=== PATIENT | female | born 1980 | race Caucasian/White ===

== ENCOUNTER → 2016-04-12 | Outpatient (CLI) | payer OTHER ==
[~2016-04-12] MED LIST: IBUP-232 PO; OXYC1TAB63 PO
[2016-04-12 10:04] LABS: HEMATOCRIT 33.2 % (35.0-46.0); REVIEW FLAG FINAL
== END ==
LOC: CLAB 08:24
PROVIDERS: ATTEND Obstetrics & Gynecology
DX: O09.93 Supervision of high risk pregnancy, unspecified, third trimester (principal)
CPT/HCPCS: 36415; 82951; 85014; 85018; 86703

== ENCOUNTER 2016-05-31 23:13 | Emergency (ER) | payer OTHER ==
[2016-05-31] MEDS ORDERED: LACTATED RINGER'S 1000 ML INJ 1,000 ML IV SCH (23:42)
[2016-05-31] MEDS ORDERED: TERBUTALINE INJ 1 MG/ML AMP SQ PRN (23:45)
[2016-05-31] MEDS ORDERED: ONDANSETRON HCL 4 MG/2 ML VIAL IV ONE (23:45)
--- NOTE | 2016-05-31 23:50 | PD ---
HPI Chief Complaint Contraction pain Date Seen: May 31, 2016 Travel History International Travel<30 Days: No Contact w/Intl Traveler<30Days: No Known Affected Area: No History of Present Illness HPI Patient 35-year-old white female previous 2 at 35-36 weeks presents complaining of contractions. Denies bleeding or rupture the membranes , heart rate tracing is reactive and she is bryn every 2-[address] Pratt for care Para: 2 : 3 History Obstetric History Obstetric History 2 C-sections Past Surgical History Narrative Surgical C-sections Social History Alcohol Use: No Tobacco Use: No Substance Abuse: No Allergies-Medications (Allergen,Severity, Reaction): Coded Allergies: Amoxicillin (Verified Allergy, Severe, Hives, 10/23/15) Home Meds No Active Prescriptions or Reported Meds Review of Systems General / Constitutional: No: Fever, Weight Gain, Chills, Other Eyes: No: Diploplia, Blurred Vision, Visual changes, Pain, Photophobia HENT: No: Headaches, Vertigo, Lightheadedness Cardiovascular: No: Irregular Rhythm, Chest Pain or Discomfort, Palpitations, Tachycardia, Syncope, Varicosities, Edema, Cyanosis Respiratory: No: Cough, Short of Breath, Other Gastrointestinal: Abdominal Pain, No: Nausea, Vomiting, Diarrhea Genitourinary: No: Decreased Urinary Output, Oliguria Musculoskeletal: No: Limited ROM, Weakness, Cramping, Edema, Pain Skin: No Rash, No Itching, No Dryness, No Lumps, No Change in Pigmentation, No Change in Nails, No Alopecia, No Lesions Neurologic: No: Weakness, Dizziness, Syncope, Focal Abnormalities, Coordination Problem, Headache, Slurred Speech, Seizures Psychiatric: No: Depression, Suicidal Ideations, Homicidal Ideation Endocrine: No: Heat Intolerance, Cold Intolerance, Polydipsia, Polyuria, Other Physical Exam Narrative GENERAL: Well-nourished, well-developed patient. SKIN: Warm and dry. HEAD: Normocephalic and atraumatic. EYES: No scleral icterus. No injection or drainage. ENT: No nasal drainage noted. Mucous membranes pink. Airway patent. NECK: Supple, trachea midline. No JVD. CARDIOVASCULAR: Regular rate and rhythm without murmurs, gallops, or rubs. RESPIRATORY: Breath sounds equal bilaterally. No accessory muscle use. BREASTS: Bilateral exam showed no masses , no retractions, no nipple discharge. ABDOMEN/GI: Abdomen soft, non-tender, bowel sounds present, no rebound, no guarding Gravid to [35-] weeks size Fundal Height: [35-] GENITOURINARY: External Genitalia: intact and normal in appearance BUS glands: [-] Cervix: [-] Dilatation: [Closed-] Effacement: [-] Thick Station: [-3] Presentation: [-vtx] Membranes: [intact ] Uterine Contractions: [Every 2-3 minutes-] FHT's: Category: [1-] Baseline: [133-] Reactive: [yes-] Variability: [mod-] Decels: [none-] EXTREMITIES: No cyanosis or edema. BACK: Nontender without obvious deformity. No CVA tenderness. NEUROLOGICAL: Awake and alert. Motor and sensory grossly within normal limits. Five out of 5 muscle strength in all muscle groups. Normal speech. Data Data Orders Vital Signs (Adult) .ON ADMISSION (05/31/16 23:42) ^ Labor Status (05/31/16 23:42) Urinalysis - C+S If Indicated (05/31/16 23:42) Lactated Ringer's 1000 Ml Inj (Lr 1000 M (05/31/16 23:42) Ondansetron Inj (Zofran Inj) (05/31/16 23:45) Terbutaline Inj (Brethine Inj) (05/31/16 23:45) MDM Interpretation(s) This patient is a 35-year-old white female previous 2 35-36 weeks gestation presents complaining of contraction cramping, denies bleeding or rupture the membranes. She is bryn every 2-3 minutes with reactive heart rate tracing. Cervix is closed thick and high. Plan Plan to give the patient 1 L of IV fluid as well as 50 g of fentanyl and Zofran IV, subcutaneous terbutaline .25 mg. Plan to check the urine to rule out a UTI and anticipate the above measures will decrease her contraction activity the point she can be discharged home. If Urinalysis positive will be sent home with oral antibiotic. Patient to schedule to see Dr. Pratt tomorrow for visit Diagnosis Diagnosis: Primary Impression: Threatened premature labor affecting , less than 37 weeks in third trimester, antepartum Disposition: DISCHARGE HOME Condition: Stable Scripts No Active Prescriptions or Reported Meds Loki Kelly II, MD May 31, 2016 23:50
[2016-06-01] VITALS: BP 130/76; PULSE 79
[2016-06-01 00:04] LABS: BLOOD, URINE NEG (NEG); COMMENT (UR) CULT NOT INDICATED; CULTURE IF INDICATED CULT NOT INDICATED; GLUCOSE,URINE NEG (NEG); KETONE, URINE NEG (NEG); NITRITE,URINE NEG (NEG); SQUAMOUS EPITHELIAL CELL URINE <1 /hpf (0-5); URINE COLOR LIGHT-YELLOW (YELLW/STRAW)
== END 2016-06-01 01:16 | disposition home or self-care (01) ==
LOC: HOBED 23:13
DX: O60.03 Preterm labor without delivery, third trimester (principal); Z3A.35 35 weeks gestation of pregnancy
CPT/HCPCS: 59025; 81001; 96372; 96374; 96375; 99284; J2405; J3010; J3105; J7120

== ENCOUNTER → 2016-06-10 | Outpatient (CLI) | payer OTHER ==
[2016-06-10 14:36] LABS: FREE T4 0.94 NG/DL (0.76-1.46)
== END ==
LOC: CLAB 13:44
PROVIDERS: ATTEND Obstetrics & Gynecology
DX: R00.2 Palpitations (principal)
CPT/HCPCS: 84439; 84443

== ENCOUNTER 2016-06-28 10:49 | Inpatient (IN) | payer OTHER ==
[~2016-06-28] VITALS: Ht 165.1 cm; Wt 101.6 kg
[2016-06-29] MEDS ORDERED: LACTATED RINGER'S 1000 ML INJ 1,000 ML IV ONE (10:43)
[2016-06-29] MEDS ORDERED: LACTATED RINGER'S 1000 ML INJ 1,000 ML IV SCH ×2 (11:13→22:09)
[2016-06-29 11:17] VITALS: TEMP 98
[2016-06-29 11:18] LABS: BLOOD, URINE NEG (NEG); COMMENT (UR) CULT NOT INDICATED; CULTURE IF INDICATED CULT NOT INDICATED; GLUCOSE,URINE NEG (NEG); KETONE, URINE NEG (NEG); MUCUS URINE FEW /lpf (OCC); NITRITE,URINE NEG (NEG); PH, URINE 7.5 (5.0-8.5); SQUAMOUS EPITHELIAL CELL URINE 1 /hpf (0-5); URINE COLOR YELLOW (YELLW/STRAW)
[2016-06-29 11:19] LABS: AUTOMATED NEUTROPHIL # 7.2 TH/MM3 (1.8-7.7); BASOPHIL % 0.3 % (0.0-2.0); EOSINOPHIL # 0.1 TH/MM3 (0-0.4); EOSINOPHIL % 0.7 % (0.0-4.0); HEMATOCRIT 32.4 % (35.0-46.0); HEMO FLAGS DIFF FINAL; LYMPH % 15.9 % (9.0-44.0); LYMPHOCYTE # 1.5 TH/MM3 (1.0-4.8); MEAN CELL VOLUME 82.3 FL (80.0-100.0); MEAN CORPUSCULAR HEMOGLOBIN 27.6 PG (27.0-34.0); MEAN CORPUSCULAR HGB CONC 33.5 % (32.0-36.0); MONO % 5.1 % (0.0-8.0); PLATELET COUNT 220 TH/MM3 (150-450); RED BLOOD COUNT 3.94 MIL/MM3 (4.00-5.30); RED CELL DISTRIBUTION WIDTH 14.3 % (11.6-17.2); WHITE BLOOD COUNT 9.2 TH/MM3 (4.0-11.0)
[2016-06-29] MEDS ORDERED: ceFAZolin 2 GM PREMIX 50 ML IV SCH (11:45)
[2016-06-29] MEDS ORDERED: OXYTOCIN 10 UNIT/ML AMP ONE (12:13)
[2016-06-29] MEDS ORDERED: CITRIC ACID-SODIUM CITRATE LIQ 30 ML UDC PO SCH (12:15)
--- NOTE | 2016-06-29 12:23 | HHI.HP ---
HPI Chief Complaint Repeat and bilateral tubal ligation. Date Seen: June 29, 2016 Travel History International Travel<30 Days: No Contact w/Intl Traveler<30Days: No History of Present Illness HPI Patient is a 35 year old at 39-5/7 weeks gestation. She denies any vaginal bleeding or discharge. No gush or leaking of fluid. Positive movement. No complications with . History Past Medical History Medical History: Denies Significant Hx Obstetric History Obstetric History s/p x 2, one in 2009 for preeclampsia and one in 2012 Past Surgical History Surgical History: No Previous Surgery Family History Family History: Negative Social History Alcohol Use: No Tobacco Use: No Substance Abuse: No Allergies-Medications (Allergen,Severity, Reaction): Coded Allergies: Amoxicillin (Verified Allergy, Severe, Hives, 06/29/16) Home Meds No Active Prescriptions or Reported Meds Review of Systems Except as stated in HPI: all other systems reviewed are Neg General / Constitutional: No: Fever, Chills Eyes: No: Visual changes HENT: No: Headaches Cardiovascular: No: Chest Pain or Discomfort Respiratory: No: Short of Breath Gastrointestinal: No: Nausea, Vomiting, Abdominal Pain Genitourinary: No: Dysuria, Pelvic Pain, Discharge, Vaginal Bleeding Neurologic: No: Headache Psychiatric: No: Substance Abuse Physical Exam Vital Signs Date Time Temp Pulse Resp B/P Pulse Ox O2 Delivery O2 Flow Rate FiO2 06/29/16 11:17 98.0 Narrative GENERAL: Well-nourished, well-developed patient. SKIN: Warm and dry. HEAD: Normocephalic and atraumatic. EYES: No scleral icterus. No injection or drainage. ENT: No nasal drainage noted. Mucous membranes pink. Airway patent. NECK: Supple, trachea midline. No JVD. CARDIOVASCULAR: Regular rate and rhythm without murmurs, gallops, or rubs. RESPIRATORY: Breath sounds equal bilaterally. No accessory muscle use. ABDOMEN/GI: Abdomen soft, non-tender, bowel sounds present, no rebound, no guarding Gravid to 39 weeks size GENITOURINARY: External Genitalia: intact and normal in appearance Presentation: vertex Membranes: intact Uterine Contractions: none FHT's: Category: I Baseline: 130 Reactive: + Variability: moderate Decels: none EXTREMITIES: No cyanosis or edema. BACK: Nontender without obvious deformity. No CVA tenderness. NEUROLOGICAL: Awake and alert. Motor and sensory grossly within normal limits. Normal speech. Data Data Vital Signs Reviewed: Yes Orders Admit To Inpatient (06/29/16 ) Code Status (06/29/16 10:43) Vital Signs (Adult) .ON ADMISSION (06/29/16 10:43) Activity Oob Ad Marcella (06/29/16 10:43) Heart (06/29/16 10:43) Urinary Catheter Management JOSE.Q8H (06/29/16 10:43) ^ Preps (06/29/16 10:43) Scd / Javi / Foot Pump JOSE.QSHIFT (06/29/16 10:43) ^ Ultrasound For Locatio (06/29/16 10:43) Diet Npo (06/29/16 Lunch) Lactated Ringer's 1000 Ml Inj (Lr 1000 M (06/29/16 10:43) Lactated Ringer's 1000 Ml Inj (Lr 1000 M (06/29/16 11:13) Cefazolin 2 Gm Premix (Ancef 2 Gm Premix (06/29/16 11:45) Citric Acid-Sodium Citrate Liq (Bicitra (06/29/16 12:15) Type And Screen (06/29/16 10:43) Complete Blood Count With Diff (06/29/16 10:43) Urinalysis - C+S If Indicated (06/29/16 10:43) Inpatient Certification (06/29/16 ) Specimen To Be Collected PRN (06/29/16 10:43) Oxytocin Inj (Pitocin Inj) (06/29/16 12:13) Labs Laboratory Tests Test 06/29/16 06/29/16 10:16 11:05 Urine Color YELLOW Urine Turbidity CLEAR Urine pH 7.5 Urine Specific Leroy 1.017 Urine Protein TRACE Urine Glucose (UA) NEG Urine Ketones NEG Urine Occult Blood NEG Urine Nitrite NEG Urine Bilirubin NEG Urine Urobilinogen LESS THAN 2.0 Urine Leukocyte Esterase NEG Urine RBC LESS THAN 1 Urine WBC LESS THAN 1 Urine Squamous Epithelial 1 Cells Urine Mucus FEW Microscopic Urinalysis Comment CULT NOT INDICATED White Blood Count 9.2 Red Blood Count 3.94 Hemoglobin 10.8 Hematocrit 32.4 Mean Corpuscular Volume 82.3 Mean Corpuscular Hemoglobin 27.6 Mean Corpuscular Hemoglobin 33.5 Concent Red Cell Distribution Width 14.3 Platelet Count 220 Mean Platelet Volume 9.2 Neutrophils (%) (Auto) 78.0 Lymphocytes (%) (Auto) 15.9 Monocytes (%) (Auto) 5.1 Eosinophils (%) (Auto) 0.7 Basophils (%) (Auto) 0.3 Neutrophils # (Auto) 7.2 Lymphocytes # (Auto) 1.5 Monocytes # (Auto) 0.5 Eosinophils # (Auto) 0.1 Basophils # (Auto) 0.0 CBC Comment DIFF FINAL Differential Comment Blood Type A POSITIVE Antibody Screen NEGATIVE Assessment/Plan Assessment and Plan 35 year old at 39-5/7 weeks gestation 1. IUP- Category I tracing, reassuring. 2. Repeat with bilateral tubal ligation. 3. GBS positive- allergy to amoxicillin is a rash, able to tolerate cephalosporins sdw Rachel Zhou MD R2 June 29, 2016 12:23
[2016-06-29] MEDS ORDERED: EPIDURAL-NALOXONE HCL 0.4 MG/ML AMP IV PRN (12:25)
[2016-06-29] MEDS ORDERED: EPIDURAL-DO NOT ADMINISTER ANTICOAGULANTS PRN (12:25)
[2016-06-29] MEDS ORDERED: EPIDURAL-DIPHENHYDRAMINE HCL 50 MG/ML VIAL IV PUSH PRN (12:25)
[2016-06-29] MEDS ORDERED: EPIDURAL-NO SYSTEMIC NARCOTICS PRN (12:25)
[2016-06-29] MEDS ORDERED: EPIDURAL-DIPHENHYDRAMINE HCL 50 MG CAP PO PRN (12:25)
[2016-06-29] MEDS ORDERED: ONDANSETRON HCL 4 MG/2 ML VIAL ONE (14:02)
[2016-06-29] MEDS ORDERED: ACETAMINOPHEN 1000 MG/100 ML VIAL IV ONE (14:02)
[2016-06-29] MEDS ORDERED: MORPHINE SULFATE PF 5 MG/10 ML VIAL ONE (14:02)
[2016-06-29] MEDS ORDERED: SODIUM CHLORIDE 0.9% FLUSH 10 ML FLUSH IV FLUSH PRN (17:15)
[2016-06-29] MEDS ORDERED: oxyCODONE/ACETAMINOPHEN 5 MG/325 MG TAB PO PRN ×2 (17:15→18:00)
[2016-06-29] MEDS ORDERED: ONDANSETRON HCL 4 MG/2 ML VIAL IV PUSH PRN (17:15)
[2016-06-29] MEDS ORDERED: OXYTOCIN 30 UNITS-500ML PREMIX 500 ML IV ONE (17:15)
[2016-06-29] MEDS ORDERED: ZOLPIDEM TARTRATE 5 MG TAB PO PRN (21:00)
[2016-06-29] MEDS ORDERED: SODIUM CHLORIDE 0.9% FLUSH 10 ML FLUSH IV FLUSH SCH (21:00)
[2016-06-29] MEDS: DOCUSATE SODIUM 50 MG/SENNA 8.6 MG TAB PO PRN (21:08)
[2016-06-29] MEDS: SIMETHICONE 80 MG CHEWABLE TAB PO PRN (21:08)
[2016-06-29] MEDS: IBUPROFEN 600 MG TAB PO PRN (21:08)
[2016-06-30] MEDS ORDERED: OXYTOCIN 30 UNITS-500ML PREMIX 500 ML IV PRN (03:15)
[2016-06-30] MEDS: IBUPROFEN 600 MG TAB PO PRN ×4 (03:24→21:35)
[2016-06-30] MEDS: SIMETHICONE 80 MG CHEWABLE TAB PO PRN ×4 (03:39→21:35)
[2016-06-30 05:58] LABS: AUTOMATED NEUTROPHIL # 10.6 TH/MM3 (1.8-7.7); BASOPHIL % 0.1 % (0.0-2.0); EOSINOPHIL # 0.1 TH/MM3 (0-0.4); EOSINOPHIL % 0.6 % (0.0-4.0); HEMATOCRIT 30.1 % (35.0-46.0); HEMO FLAGS DIFF FINAL; LYMPH % 8.4 % (9.0-44.0); MEAN CELL VOLUME 83.1 FL (80.0-100.0); MEAN CORPUSCULAR HEMOGLOBIN 27.2 PG (27.0-34.0); MEAN CORPUSCULAR HGB CONC 32.7 % (32.0-36.0); NEUT % 86.9 % (16.0-70.0); PLATELET COUNT 170 TH/MM3 (150-450); RED BLOOD COUNT 3.62 MIL/MM3 (4.00-5.30); RED CELL DISTRIBUTION WIDTH 14.2 % (11.6-17.2); WHITE BLOOD COUNT 12.2 TH/MM3 (4.0-11.0)
[2016-06-30 08:00] VITALS: BP 113/71; PULSE 66; RESP 16; TEMP 98.5
--- NOTE | 2016-06-30 11:12 | HHI.OB ---
Subjective Post Operative Day: 1 Objective Vitals/I&O Vital Signs Date Time Temp Pulse Resp B/P Pulse Ox O2 Delivery O2 Flow Rate FiO2 06/30/16 08:00 66 16 113/71 06/30/16 08:00 98.5 06/29/16 11:17 98.0 Result Diagram: 06/30/16 0455 Objective Remarks GENERAL: Well-nourished, well-developed patient. CARDIOVASCULAR: Regular rate and rhythm without murmurs, gallops, or rubs. RESPIRATORY: Breath sounds equal bilaterally. No accessory muscle use. ABDOMEN/GI: Abdomen soft, non-tender, bowel sounds present. Incision: dressing Clean, dry and intact. Fundus: Firm, non-tender at umbilicus. GENITOURINARY: Light to moderate bleeding. EXTREMITIES: No cyanosis or edema, non-tender, without signs of DVT. Medications and IVs Current Medications Medications (Trade) Dose Ordered Sig/Liliam Route Start Time Stop Time Status Last Admin Miscellaneous Information NO SYSTEMIC NARCOTICS TO BE GIVEN FO... UNSCH PRN .XX 06/29/16 12:25 06/30/16 12:24 (Narcan Inj) 0.4 mg UNSCH PRN IV 06/29/16 12:25 06/30/16 12:24 (Benadryl Inj) 25 mg Q6H PRN IV PUSH 06/29/16 12:25 06/30/16 12:24 (Benadryl) 50 mg Q6H PRN PO 06/29/16 12:25 06/30/16 12:24 Miscellaneous Information ALL NURSING DEPARTMENTS UNSCH PRN .XX 06/29/16 12:25 06/30/16 12:24 (Lr 1000 ml Inj) 1,000 ml @ 100 mls/hr Q10H IV 06/29/16 22:09 06/30/16 18:08 (NS Flush) 2 ml BID IV FLUSH 06/29/16 21:00 (NS Flush) 2 ml UNSCH PRN IV FLUSH 06/29/16 17:15 (Mylicon Chew) 80 mg QID PRN PO 06/29/16 17:15 06/30/16 09:21 (Motrin) 600 mg Q6H PRN PO 06/29/16 17:15 06/30/16 09:21 (Percocet 5-325 Mg) 1 tab Q4H PRN PO 06/29/16 17:15 (Percocet 5-325 Mg) 2 tab Q4H PRN PO 06/29/16 18:00 (Samantha-Colace) 2 tab Q12H PRN PO 06/29/16 17:15 06/29/16 21:08 (Ambien) 5 mg HS PRN PO 06/29/16 21:00 (M-M-R Ii Inj) 0.5 ml ONCE ONCE SQ 06/30/16 16:00 06/30/16 16:01 (Boostrix Inj) 0.5 ml ONCE ONCE IM 06/30/16 16:00 06/30/16 16:01 06/29/16 23:47 (Zofran Inj) 4 mg Q6H PRN IV PUSH 06/29/16 17:15 Assessment/Plan Problem List: (1) Anemia Plan: will treat with oral iron pp (2) S/P tubal ligation (3) S/P repeat low transverse Plan: routine Assessment and Plan POD #1 pt doing well pt to shower today bonding with infant, breast feeding pain well managed with motrin, pt knows percocet is available routine Discharge Planning consider dc home tomorrow Tg Joe June 30, 2016 11:12
--- NOTE | 2016-06-30 11:14 | HHI.DCPOC ---
Discharge Care Plan Diagnosis: (1) Anemia (2) S/P tubal ligation (3) S/P repeat low transverse Your Health Problems Are: delivery Report Symptoms to Your Doctor -Temperate above 100.5 degrees -Redness, of incision or excessive or foul smelling drainage -Unusual pain or calf pain -Increased vaginal bleeding -Painful or difficulty urinating -Feelings of extreme sadness or anxiety after 2 weeks Goals to Promote Your Health * To prevent worsening of your condition and complications * To maintain your health at the optimal level Directions to Meet Your Goals Take your medications as prescribed Follow your dietary instruction Follow activity as directed Ensure plenty of rest for recovery Drink fluids for hydration Keep your appointments as scheduled Take your immunizations and boosters as scheduled If your symptoms worsen call your PCP, if no PCP go to Urgent Care Center or Emergency Room Smoking is Dangerous to Your Health. Avoid second hand smoke Call the 24-hour crisis hotline for domestic abuse at Tg Joe June 30, 2016 11:14
--- NOTE | 2016-06-30 11:17 | HHI.DS ---
Admission Date June 29, 2016 at 10:05 Discharge Date: July 01, 2016 Admitting Diagnosis term previous c section desires sterilization Diagnosis: (1) S/P tubal ligation (2) S/P repeat low transverse Diagnosis: Principal (3) Anemia Diagnosis: Secondary Delivery Date: June 29, 2016 : Repeat : Female Brief History Repeat c section with tubal ligation routine Hospital Course routine Pt Condition on Discharge: Good Discharge Disposition: Discharge Home Discharge Instructions Diet Instructions: As Tolerated, No Restrictions Additional Diet Instructions: Drink at least 8 - 16 oz bottles of water a day Activities You Can Perform: Shower Only-No Bath Activities to Avoid: Prolonged Standing, Strenuous Activity, Sexual Activity Additional Activity Instruc.: No driving until off pain medications Do not lift anything heavier than your baby in an carrier Follow up Referrals: DELIN[facility] [facility]LECTOR - 1 Week @ [facility] Tg Joe June 30, 2016 11:17
[2016-06-30] MEDS: DOCUSATE SODIUM 50 MG/SENNA 8.6 MG TAB PO PRN (15:28)
[2016-06-30] MEDS ORDERED: MEASLES, MUMPS, RUBELLA VACCINE 0.5 ML VIAL SQ ONE (16:00)
[2016-06-30] MEDS ORDERED: DIPHTH/TETANUS/ACEL PERTUSSIS (BOOSTER) 0.5 ML VIAL/PFS IM ONE (16:00)
[2016-07-01] MEDS: SIMETHICONE 80 MG CHEWABLE TAB PO PRN ×2 (03:23→09:12)
[2016-07-01] MEDS: IBUPROFEN 600 MG TAB PO PRN ×2 (03:24→09:12)
[2016-07-01] MEDS: DOCUSATE SODIUM 50 MG/SENNA 8.6 MG TAB PO PRN (03:24)
[2016-07-01] MEDS ORDERED: OXYC1TAB63 PO (08:19)
[2016-07-01] MEDS ORDERED: IBUP-232 PO (08:19)
--- NOTE | 2016-07-01 08:37 | HHI.OB ---
Subjective Post Operative Day: 2 Objective Result Diagram: 06/30/16 0455 Objective Remarks GENERAL: Well-nourished, well-developed patient. CARDIOVASCULAR: Regular rate and rhythm without murmurs, gallops, or rubs. RESPIRATORY: Breath sounds equal bilaterally. No accessory muscle use. ABDOMEN/GI: Abdomen soft, non-tender, bowel sounds present. Incision: Clean, dry and intact. Fundus: Firm, non-tender at umbilicus. GENITOURINARY: Light to moderate bleeding. EXTREMITIES: No cyanosis or edema, non-tender, without signs of DVT. Medications and IVs Current Medications Medications (Trade) Dose Ordered Sig/Liliam Route Start Time Stop Time Status Last Admin (NS Flush) 2 ml BID IV FLUSH 06/29/16 21:00 (NS Flush) 2 ml UNSCH PRN IV FLUSH 06/29/16 17:15 (Mylicon Chew) 80 mg QID PRN PO 06/29/16 17:15 07/01/16 03:23 (Motrin) 600 mg Q6H PRN PO 06/29/16 17:15 07/01/16 03:24 (Percocet 5-325 Mg) 1 tab Q4H PRN PO 06/29/16 17:15 (Percocet 5-325 Mg) 2 tab Q4H PRN PO 06/29/16 18:00 (Samantha-Colace) 2 tab Q12H PRN PO 06/29/16 17:15 07/01/16 03:24 (Ambien) 5 mg HS PRN PO 06/29/16 21:00 (Zofran Inj) 4 mg Q6H PRN IV PUSH 06/29/16 17:15 Assessment/Plan Problem List: (1) Anemia Plan: will treat with oral iron pp (2) S/P tubal ligation (3) S/P repeat low transverse Plan: routine Assessment and Plan POD #2 pt doing well pt to shower today bonding with infant, breast feeding pain well managed with motrin, percocet rx given routine Discharge Planning dc home today Tg Joe July 01, 2016 08:37
[2016-07-01 09:00] VITALS: BP 128/82; PULSE 78; RESP 18; TEMP 98.8
--- NOTE | 2016-07-01 15:42 | MP ---
cc: Manfred PRATT MD DATE OF SURGERY June 29, 2016 PREOPERATIVE DIAGNOSIS 1. Previous section. 2. Desires permanent sterilization. 3. Intrauterine at 39+ weeks. POSTOPERATIVE DIAGNOSIS 1. Previous section. 2. Desires permanent sterilization. 3. Intrauterine at 39+ weeks. PROCEDURE Repeat low transverse section and bilateral tubal ligation ANESTHESIA Spinal SURGEON Manfred Pratt MD CO-SURGEON Abbie Irwin FINDINGS Normal female 9 pounds 13 ounces with 7 and 9. Normal fallopian tubes, normal ovaries, normal uterus. COMPLICATIONS None. COUNTS Correct. ESTIMATED BLOOD LOSS 500 mL FLUIDS Crystalloids. DISPOSITION The patient tolerated procedure well, naye to recovery room in good condition. PROCEDURE IN DETAIL The patient was taken to the operating room, identified by name band and verbally given a spinal anesthetic, prepped and draped in the usual sterile fashion for a repeat section. Time-out was taken. A Pfannenstiel incision was made removing the old incision. The incision was taken down to the fascia. The fascia was taken off the rectus muscles by blunt and sharp dissection. The rectus muscles were spread bluntly and the peritoneum entered under direct vision without difficulty. The incision was extended with care to avoid the urinary bladder. The lower uterine segment was identified and a bladder flap was created in the usual fashion, pushing the peritoneum off the bladder. The incision on the uterus was made in a transverse manner and taken down in the midline until the uterine cavity was entered. Clear fluid was noted and the incision was extended with the surgeon's fingers. The vertex was grasped and, with fundal pressure, the head was delivered. The remainder of the was delivered and the cord doubly clamped and cut after a 45-second wait period. The baby was handed to the resuscitation team present. The placenta was removed manually after cord blood was taken and the uterus was curettaged twice with a wet lap. The uterus was delivered from the abdomen. The uterine incision was repaired with 0 Vicryl in a running fashion in two layers, the second layer imbricating the first. At this point the fallopian tubes were identified and a small knuckle was placed in the fallopian tube and tied with two plain gut sutures and a small portion removed. This was repeated on both sides. The cul-de-sac and gutters were cleaned of blood and debris, the uterus delivered back into the abdomen. The incision was dry. At this point the rectus muscles were reapproximated with 0 Vicryl in a running fashion. The fascia was repaired with 0 Vicryl in a running fashion. The subcu was repaired with 3-0 Vicryl in a running fashion and the skin was repaired with 4-0 Monocryl in a subcuticular manner. She tolerated the procedure well and went to the recovery room in good condition. R. MD ROSSY Esquivel/ /1:50 PM /3:29 PM
== END 2016-07-01 12:07 | disposition home or self-care (01) | DRG 766 ==
LOC: H2EB 06-29 10:05 → H1EA 06-29 16:16
PROVIDERS: ADMIT Obstetrics & Gynecology; ATTEND Obstetrics & Gynecology
PROC: 10D00Z1 Extraction of Products of Conception, Low, Open Approach (ICD-10-PCS; principal; 2016-06-29)
PROC: 0UB70ZZ Excision of Bilateral Fallopian Tubes, Open Approach (ICD-10-PCS; 2016-06-29)
DX: O34.219 Maternal care for unspecified type scar from previous cesarean delivery (principal); O90.81 Anemia of the puerperium; O99.824 Streptococcus B carrier state complicating childbirth; O09.523 Supervision of elderly multigravida, third trimester; Z30.2 Encounter for sterilization; Z37.0 Single live birth; Z3A.39 39 weeks gestation of pregnancy; Z88.0 Allergy status to penicillin
CPT/HCPCS: 59025; 81001; 85025; 86850; 86900; 86901; 88302; 90715; J0131; J0690; J2274; J2405; J2590